=== PATIENT | male | born 1965 | race Two or more races ===

== ENCOUNTER 2018-02-15 10:32 | Emergency (ER) | payer SELFPAY ==
[2018-02-17 07:37] LABS: POC GLUCOSE 42 mg/dL (70-99)
== END 2018-02-15 15:00 | disposition expired ==
LOC: ER 10:32
DX: I46.9 Cardiac arrest, cause unspecified (principal); I10 Essential (primary) hypertension; Z88.5 Allergy status to narcotic agent; Z88.6 Allergy status to analgesic agent; Z88.8 Allergy status to other drugs, medicaments and biological substances
CPT/HCPCS: 82962; 92950; 99285-25